=== PATIENT | male | born 1930 | race Caucasian/White ===

== ENCOUNTER 2017-03-02 19:18 | Inpatient (IN) | payer OTHER ==
[~2017-03-02] VITALS: Ht 170.2 cm; Wt 58.4 kg
[~2017-03-02 19:18] MED LIST: Aspirin PO; Pletal PO; TRAMADOL HCL50 MG PO; Ultram PO; Vicodin,Norco 5/325 PO; Vitamin-E PO
[2017-03-02 20:21] LABS: HEMATOCRIT 35.2 % (38.0-50.0); MCH 30.2 PG (29.0-34.0); MCHC 33.2 G/DL (30.0-36.0); MEAN PLAT.VOLUME 11.7 uM^3 (9.0-12.4); PLATELET COUNT 214 K/uL (156-360); RBC DIS.WIDTH-CV 13.2 % (11.8-14.6); RBC DIS.WIDTH-SD 44.1 % (39-53); RED BLOOD COUNT 3.87 M/uL (4.00-5.50); WHITE BLOOD COUNT 12.5 K/uL (4.1-10.2)
[2017-03-02 20:27] LABS: CHLORIDE 104 mEq/L (99-109); POTASSIUM 4.7 mEq/L (3.7-5.4); SODIUM 132 mEq/L (136-147)
[2017-03-02 20:29] LABS: GLUCOSE 112 mg/dL (70-99)
[2017-03-02 20:31] LABS: ANION GAP 12 MEQ/L (2-14)
[2017-03-02 20:33] LABS: GFR ESTIMATE (CALCULATED) 32 mL/min/
[2017-03-02 20:34] LABS: UREA NITROGEN (BUN) 53 mg/dL (9-23)
[2017-03-02 21:09] LABS: TROP-I INTERPRETATION POSITIVE
[2017-03-02 21:44] LABS: INTER. NORMALIZED RATIO 1.3; PROTHROMBIN TIME 13.9 SEC (10.2-12.9)
[2017-03-02 21:46] LABS: PTT 28.5 SEC (25-37)
[2017-03-03 01:00] VITALS: BP 106/68
[2017-03-03 03:47] LABS: TROP-I INTERPRETATION POSITIVE
[2017-03-03 03:50] LABS: TROPONIN-I 1.96 ng/mL (0.0-0.30)
[2017-03-03 04:30] VITALS: BP 110/70
[2017-03-03 05:03] LABS: BASOPHIL COUNT 0.1 K/uL (0-0.1); EOSINOPHIL (%) 1.9 % (0-5); EOSINOPHIL COUNT 0.2 K/uL (0-0.3); HEMATOCRIT 34.7 % (38.0-50.0); IMMATURE GRANULOCYTE (%) 0.9 % (0.0-0.7); IMMATURE GRANULOCYTE COUNT 0.1 K/uL; INSTRUMENT ABS NEUTROPHIL CT 7.6 K/uL; LYMPHOCYTE COUNT 2.6 K/uL (1.0-2.8); MCH 30.5 PG (29.0-34.0); MCHC 33.1 G/DL (30.0-36.0); MEAN PLAT.VOLUME 12.4 uM^3 (9.0-12.4); MONOCYTE (%) 8.8 % (3-12); NEUTROPHIL (%) 65.1 % (45-76); NEUTROPHIL COUNT 7.6 K/uL (1.8-6.4); PLATELET COUNT 227 K/uL (156-360); RBC DIS.WIDTH-CV 13.2 % (11.8-14.6); RBC DIS.WIDTH-SD 45.3 % (39-53); RED BLOOD COUNT 3.77 M/uL (4.00-5.50); WHITE BLOOD COUNT 11.7 K/uL (4.1-10.2)
[2017-03-03 08:00] VITALS: BP 107/60
[2017-03-03 09:18] LABS: CARBON DIOXIDE (BICARBONATE) 18.1 MEQ/L (20-31)
[2017-03-03 09:37] LABS: ANION GAP 14 MEQ/L (2-14); CHLORIDE 103 MEQ/L (99-109); POTASSIUM 5.2 MEQ/L (3.7-5.4); SAMPLE HEMOLYSIS CHECK 0; SAMPLE ICTERIC CHECK 0; SAMPLE LIPEMIA CHECK 0; SODIUM 133 MEQ/L (136-147)
[2017-03-03 09:42] LABS: GFR ESTIMATE (CALCULATED) 32 mL/min/; GLUCOSE 121 mg/dL (70-99); UREA NITROGEN (BUN) 57 mg/dL (9-23)
[2017-03-03 09:46] LABS: INTACT PARATHYROID HORMONE 77 pg/mL (10-69)
[2017-03-03 09:51] LABS: TROP-I INTERPRETATION POSITIVE; TROPONIN-I 1.62 ng/mL (0.0-0.30)
[2017-03-03 11:00] LABS: ADD MIUA? YES; BILIRUBIN NEGATIVE; BLOOD MODERATE; COLOR AMBER ((YELLOW)); GLUCOSE (STRIP) NEGATIVE; KETONES NEGATIVE; LEUKOCYTES SMALL; NITRITE POSITIVE; PROTEIN (STRIP) 100; SPECIFIC GRAVITY 1.019 (1.000-1.030)
[2017-03-03] MEDS ORDERED: BACTRIM,SEPT1 TABLET PO (11:13)
[2017-03-03] MEDS ORDERED: ALDACTONE25 MG PO (11:14)
[2017-03-03 11:15] LABS: BACTERIA 1+ /HPF; EPITHELIAL CELLS RARE /HPF; HYALINE CASTS 20-30 /LPF; MUCUS TRACE /LPF; RED BLOOD CELLS 30-40 /HPF (0-5); UCUL ADDED? YES; WHITE BLOOD CELLS TNTC /HPF (0-5)
[2017-03-03] MEDS ORDERED: BUMETANIDE1 MG PO (11:36)
[2017-03-03 11:51] LABS: UR CREATININE CONCENTRATION 154.2 MG/DL
[2017-03-03 12:35] VITALS: BP 107/63
[2017-03-03 13:00] LABS: URINE TOTAL PROTEIN 67 MG/DL (0-10)
[2017-03-03 14:00] VITALS: BP 91/57
[2017-03-03 16:16] LABS: TROP-I INTERPRETATION POSITIVE; TROPONIN-I 2.45 ng/mL (0.0-0.30)
[2017-03-03 16:20] VITALS: BP 125/66
[2017-03-03 18:04] LABS: ANION GAP 21 MEQ/L (2-14); CHLORIDE 100 MEQ/L (99-109); GFR ESTIMATE (CALCULATED) 26 mL/min/; MAGNESIUM 3.2 mg/dl (1.3-2.7); SAMPLE HEMOLYSIS CHECK 4; SAMPLE ICTERIC CHECK 0; SAMPLE LIPEMIA CHECK 0; SODIUM 131 MEQ/L (136-147); UREA NITROGEN (BUN) 58 mg/dL (9-23)
[2017-03-03 18:05] LABS: GLUCOSE 60 mg/dL (70-99)
[2017-03-03 18:09] LABS: POTASSIUM 7.7 MEQ/L (3.7-5.4)
[2017-03-03 19:45] LABS: BASE EXCESS -20.6 mEq/L (-3 to +3); BICARBONATE 6.7 mEq/L (22-26); CARBOXY HGB 0.7 % (0-5); COMMENTS - BLOOD GASES C+A+; DEVICE NC; METHEMOGLOBIN 0.9 % (0-1.5); O2 FLOW 2 L/MIN; PCO2 20 mm Hg (35-45); PO2 100 mm Hg (80-100); SITE LR
[2017-03-03 19:46] LABS: pH 7.13 (7.35-7.45)
[2017-03-03 20:28] LABS: ANION GAP 22 MEQ/L (2-14); CHLORIDE 101 MEQ/L (99-109); GFR ESTIMATE (CALCULATED) 22 mL/min/; SAMPLE HEMOLYSIS CHECK 0; SAMPLE ICTERIC CHECK 0; SAMPLE LIPEMIA CHECK 0; SODIUM 134 MEQ/L (136-147); UREA NITROGEN (BUN) 60 mg/dL (9-23)
[2017-03-03 20:30] LABS: GLUCOSE 13 mg/dL (70-99); POTASSIUM 6.4 MEQ/L (3.7-5.4)
[2017-03-04 07:58] LABS: IFE GEL NO. CAPI
[2017-03-05 14:27] LABS: IFE GEL NO. 96-1
== END 2017-03-03 22:38 ==
LOC: EME 19:18 → EDOF 23:22 → ENRESERV 23:23 → 4EAST 03-03 00:36
PROVIDERS: Hospitalist; Internal Medicine
DX: I21.4 Non-ST elevation (NSTEMI) myocardial infarction (principal); I47.2 Ventricular tachycardia; N17.9 Acute kidney failure, unspecified; I50.23 Acute on chronic systolic (congestive) heart failure; J84.9 Interstitial pulmonary disease, unspecified; E87.2 Acidosis; N18.3 Chronic kidney disease, stage 3 (moderate); I95.9 Hypotension, unspecified; I25.10 Atherosclerotic heart disease of native coronary artery without angina pectoris; I25.2 Old myocardial infarction; N30.20 Other chronic cystitis without hematuria; R79.89 Other specified abnormal findings of blood chemistry; N39.0 Urinary tract infection, site not specified; I25.5 Ischemic cardiomyopathy; Z66 Do not resuscitate; J44.9 Chronic obstructive pulmonary disease, unspecified; E78.5 Hyperlipidemia, unspecified; I08.0 Rheumatic disorders of both mitral and aortic valves; F17.210 Nicotine dependence, cigarettes, uncomplicated; Z82.49 Family history of ischemic heart disease and other diseases of the circulatory system; H91.90 Unspecified hearing loss, unspecified ear; I73.9 Peripheral vascular disease, unspecified; M19.90 Unspecified osteoarthritis, unspecified site; N13.8 Other obstructive and reflux uropathy; E87.1 Hypo-osmolality and hyponatremia; D64.9 Anemia, unspecified; I13.0 Hypertensive heart and chronic kidney disease with heart failure and stage 1 through stage 4 chronic kidney disease, or unspecified chronic kidney disease; N28.1 Cyst of kidney, acquired; N40.1 Benign prostatic hyperplasia with lower urinary tract symptoms; R33.9 Retention of urine, unspecified; R45.1 Restlessness and agitation; R20.0 Anesthesia of skin; Z85.51 Personal history of malignant neoplasm of bladder
CPT/HCPCS: 36600; 71020; 76770; 80048; 80048 91; 80069; 81003; 82306; 82570; 82803; 83735; 83970; 84156; 84484; 85025; 85027; 85379; 85610; 85730; 86334; 86335; 87040; 87086; 93005; 94799; 99281; 99285; J0696; J2405; J7030; J7050